=== PATIENT | female | born 1975 | race American Indian/Alaskan Native ===

== ENCOUNTER 2016-11-04 08:31 | Emergency (ER) | payer SELFPAY ==
[2016-11-04 09:17] LABS: Bilirubin,Urine NEG (Negative); Blood,Urine NEG (Negative); Ketones,Urine NEG (Negative); Leukocyte Esterase,Urine NEG (Negative); Mucus,Urine FEW /HPF; Nitrite,Urine NEG (Negative); Urobilinogen,Urine < 2.0 mg/dL (<2.0)
[2016-11-04 11:28] VITALS: BP 155/90
--- NOTE | 2016-11-04 11:30 | XRay Report ---
AP CHEST :11/04/16 08:46:00 CLINICAL: Cough. COMPARISON:None. FINDINGS: Normal heart and pulmonary vasculature. The lungs are normally expanded and clear. The bones and soft tissues are normal. IMPRESSION: Normal chest.
--- NOTE | 2016-11-04 12:16 | Emergency Department Report ---
ED General Adult HPI - General Chief complaint: Abdominal Pain Stated complaint: TIM Time Seen by Provider: 11/04/16 11:49 Source: patient Mode of arrival: Ambulatory Limitations: No Limitations - History of Present Illness Initial comments: The patient reported to the emergency department for URI symptoms. She does have some chronic lower abdominal pain but this is not the reason why she is here. She states that she has had ingestion and has been taking Coricidin. He states that the nasal drainage has gotten yellow. Complains of cough with green mucus. He denies asthma or wheezing. She's had no shortness of breath. Complains of a sore throat for several weeks. She has not recently checked her temperature or had any chills. She does not have a primary care provider but states he has a funding coordinator who she has not seen recently she does not complain of any other symptoms. -: days(s) Location: face, abdomen (lower abdomen bilaterally) Radiation: non-radiation Quality: burning Consistency: constant Improves with: none Worsens with: none Associated Symptoms: denies other symptoms Treatments Prior to Arrival: none - Related Data Home Medications Medication Instructions Recorded Confirmed Last Taken SUMAtriptan SUCCINATE [Imitrex] 50 mg PO BID PRN 11/04/16 11/04/16 Unknown Previous Rx's Medication Instructions Recorded Last Taken Type Azithromycin [Zithromax Z-KARO] 250 mg PO DAILY #6 tablet 11/04/16 Unknown Rx Cetirizine HCl [ZyrTEC] 10 mg PO QDAY #14 capsule 11/04/16 Unknown Rx traMADol [Ultram] 50 mg PO Q4HR PRN #10 tablet 11/04/16 Unknown Rx Allergies Allergy/AdvReac Type Severity Reaction Status Date / Time hydrocodone bitartrate Allergy Rash Verified 02/27/14 21:11 [From [place]] Iodinated Contrast Media - Allergy Itching Verified 02/27/14 21:11 IV Dye oxycodone HCl [From Percocet] Allergy Itching Verified 02/27/14 21:11 ED Review of Systems ROS: Stated complaint: TIM Other details as noted in HPI Constitutional: denies: chills, fever Eyes: denies: eye pain, eye discharge, vision change ENT: as per HPI, throat pain. denies: ear pain Respiratory: cough. denies: shortness of breath, wheezing Cardiovascular: denies: chest pain, palpitations Endocrine: no symptoms reported Gastrointestinal: abdominal pain. denies: nausea, vomiting, diarrhea, hematemesis, melena, hematochezia Genitourinary: denies: urgency, dysuria, discharge Musculoskeletal: denies: back pain, joint swelling, arthralgia Skin: denies: rash, lesions Neurological: denies: headache, weakness, paresthesias Psychiatric: denies: anxiety, depression Hematological/Lymphatic: denies: easy bleeding, easy bruising ED Past Medical Hx - Past Medical History Previous Medical History?: Yes Hx Hypertension: Yes - Surgical History Past Surgical History?: Yes Hx Cholecystectomy: Yes (1998) Additional Surgical History: Right elbow surgery January 29, 2014, Tubaligation 2003 - Social History Smoking Status: Never Smoker Substance Use Type: None - Medications Home Medications: Home Medications Medication Instructions Recorded Confirmed Last Taken Type Azithromycin [Zithromax Z-KARO] 250 mg PO DAILY #6 tablet 11/04/16 Unknown Rx Cetirizine HCl [ZyrTEC] 10 mg PO QDAY #14 capsule 11/04/16 Unknown Rx SUMAtriptan SUCCINATE [Imitrex] 50 mg PO BID PRN 11/04/16 11/04/16 Unknown History traMADol [Ultram] 50 mg PO Q4HR PRN #10 tablet 11/04/16 Unknown Rx ED Physical Exam - General Limitations: No Limitations General appearance: alert, in no apparent distress - Head Head exam: Present: atraumatic, normocephalic - Eye Eye exam: Present: normal appearance, PERRL, EOMI. Absent: scleral icterus - ENT ENT exam: Present: normal orophraynx, mucous membranes moist, TM's normal bilaterally - Neck Neck exam: Present: normal inspection. Absent: tenderness, meningismus - Respiratory Respiratory exam: Present: normal lung sounds bilaterally. Absent: respiratory distress - Cardiovascular Cardiovascular Exam: Present: regular rate, normal rhythm. Absent: systolic murmur, diastolic murmur, rubs, gallop - GI/Abdominal GI/Abdominal exam: Present: soft, normal bowel sounds. Absent: distended, tenderness, guarding, rebound, rigid, organomegaly, mass, bruit, pulsatile mass , hernia - Extremities Exam Extremities exam: Present: normal inspection, full ROM. Absent: normal capillary refill, pedal edema, joint swelling - Back Exam Back exam: Present: normal inspection. Absent: CVA tenderness (R), CVA tenderness (L) - Neurological Exam Neurological exam: Present: alert, oriented X3, CN II-XII intact. Absent: motor sensory deficit - Psychiatric Psychiatric exam: Present: normal affect, normal mood - Skin Skin exam: Present: warm, dry, intact, normal color. Absent: rash ED Course Vital Signs 11/04/16 11/04/16 11/04/16 08:36 11:18 11:19 Temperature 98.5 F Pulse Rate 90 Respiratory 20 Rate Blood Pressure 150/101 O2 Sat by Pulse 99 99 98 Oximetry 11/04/16 11/04/16 11:21 11:26 Temperature Pulse Rate Respiratory 20 Rate Blood Pressure 155/90 O2 Sat by Pulse 98 99 Oximetry ED Medical Decision Making - Lab Data Laboratory Results - last 24 hr 11/04/16 08:51 Urine Color Yellow Urine Turbidity Clear Urine pH 6.0 Ur Specific [place] 1.013 Urine Protein 30 mg/dl Urine Glucose (UA) Neg Urine Ketones Neg Urine Blood Neg Urine Nitrite Neg Urine Bilirubin Neg Urine Urobilinogen < 2.0 Ur Leukocyte Esterase Neg Urine WBC (Auto) 2.0 Urine RBC (Auto) 2.0 U Epithel Cells (Auto) 5.0 Urine Mucus Few Urine HCG, Qual Negative Critical care attestation.: If time is entered above; I have spent that time in minutes in the direct care of this critically ill patient, excluding procedure time. ED Disposition Clinical Impression: Acute bronchitis Qualifiers: Bronchitis organism: unspecified organism Qualified Code(s): J20.9 - Acute bronchitis, unspecified Acute sinusitis Qualifiers: Sinusitis location: unspecified location Recurrence: non-recurrent Qualified Code(s): J01.90 - Acute sinusitis, unspecified Disposition: DISCHARGED TO HOME OR SELFCARE Is pt being admited?: No Does the pt Need Aspirin: No Condition: Stable Instructions: Abdominal Pain (ED), Acute Bronchitis (ED) Additional Instructions: Rx as directed. Return symptoms worsen. Follow up with a primary care setting as well as with your funding coordinator for your lower abdominal discomfort. Prescriptions: Azithromycin [Zithromax Z-KARO] 250 mg PO DAILY #6 tablet Cetirizine HCl [ZyrTEC] 10 mg PO QDAY #14 capsule traMADol [Ultram] 50 mg PO Q4HR PRN #10 tablet PRN Reason: Pain Referrals: PRIMARY CARE, [Primary Care Provider] - 3-5 Days [facility] [Provider Group] - 3-5 Days Time of Disposition: 12:22
[2016-11-04 12:21] LABS: Alanine Aminotransferase 15 units/L (7-56); Albumin/Globulin Ratio 1.1 %; Alkaline Phosphatase 84 units/L (35-129); Anion Gap 17 mmol/L; Bilirubin,Total 0.6 mg/dL (0.1-1.2); Blood Urea Nitrogen 7 mg/dL (7-17); Calcium 9.1 mg/dL (8.4-10.2); Carbon Dioxide 25 mmol/L (22-30); Chloride 100.7 mmol/L (98-107); Glucose 96 mg/dL (65-100); Lipase 15 units/L (13-60); Sodium 139 mmol/L (137-145); Total Protein 7.7 g/dL (6.3-8.2)
[2016-11-04 12:23] LABS: Basophils % (Auto) 0.6 % (0.0-1.8); Hematocrit 35.2 % (30.3-42.9); Hemoglobin 11.6 gm/dl (10.1-14.3); Mean Corpuscular HGB Conc 33 % (30-34); Mean Corpuscular Volume 77 fl (79-97); Platelet Count 150 K/mm3 (140-440); Red Blood Count 4.55 M/mm3 (3.65-5.03); Red Cell Distribution Width 15.8 % (13.2-15.2); White Blood Count 8.8 K/mm3 (4.5-11.0)
[2016-11-04 12:28] LABS: Mean Corpuscular Hemoglobin 26 pg (28-32)
== END 2016-11-04 12:35 | disposition home or self-care (01) ==
LOC: ED 08:31
DX: J20.9 Acute bronchitis, unspecified (principal); J01.90 Acute sinusitis, unspecified; I10 Essential (primary) hypertension; Z88.8 Allergy status to other drugs, medicaments and biological substances; Z91.041 Radiographic dye allergy status
CPT/HCPCS: 36415; 71010; 80053; 81001; 81025; 83690; 85025